=== PATIENT | female | born 1950 | race Caucasian/White ===

== ENCOUNTER 2017-03-06 16:01 | Emergency (ER) | payer OTHER ==
[~2017-03-06] VITALS: Ht 162.6 cm; Wt 102.1 kg
[2017-03-06 16:08] VITALS: BP_SYST 137; BP_DIAS 17; BP_DIAS 71
--- NOTE | 2017-03-06 18:20 | NUR ---
PATIENT PRESENTS TO ED WITH LOWER BACK PAIN AND LEFT HIP PAIN X4 DAYS. NO TRAUMA .DENIES N/V/D; SKIN IS PINK/WARM/DRY; AAOX4 WITH EVEN; LUNGS CLEAR BL; HR EVEN AND REGULAR; PT DENIES ANY FEVER, CP, SOB, OR COUGH AT THIS TIME; PATIENT STATES PAIN OF 10/10 AT THIS TIME;PATIENT POSITIONED FOR COMFORT; HOB ELEVATED; BEDRAILS UP X2; BED DOWN. COMPILATION CLERK AT BEDSIDE.
[2017-03-06] MEDS ORDERED: CYCLOBENZAPRINE 10 MG TAB PO ONE (18:30)
[2017-03-06] MEDS ORDERED: KETOROLAC 30 MG/ML VIAL IM ONE (18:30)
--- NOTE | 2017-03-06 18:49 | NUR ---
PT WENT TO XRAY.ACCOMPANIED BY TECH.
--- NOTE | 2017-03-06 19:02 | NUR ---
BACK FROM XRAY;NO ACUTE DISTRESS NOTED;WILL CONTINUE TO MONITOR PT.
--- NOTE | 2017-03-06 19:09 | NUR ---
Pt report given to MARTINA GUTHRIE. Transfer of care at this time.
--- NOTE | 2017-03-06 19:30 | NUR ---
Patient being evaluated by physician at bedside. Addendum: 03/06/17 at 1937 by [email or web address] EVALUATED BY DR. GARCIA
[2017-03-06 20:25] VITALS: BP 147/83
--- NOTE | 2017-03-06 20:25 | NUR ---
Patient discharged with v/s stable. Written and verbal after care instructions given and explained. Patient alert, oriented and verbalized understanding of instructions. Ambulatory with steady gait. All questions addressed prior to discharge. ID band removed. Patient advised to follow up with PMD. Rx of MOTRIN 600MG PO, FLEXERIL 10MG PO, MACROBID CAPSULE PO given. Patient educated on indication of medication including possible reaction and side effects. Opportunity to ask questions provided and answered.
== END 2017-03-06 20:25 | disposition home or self-care (01) ==
LOC: MED 16:01
DX: N39.0 Urinary tract infection, site not specified (principal); E11.9 Type 2 diabetes mellitus without complications; I10 Essential (primary) hypertension; E78.5 Hyperlipidemia, unspecified; M19.90 Unspecified osteoarthritis, unspecified site
CPT/HCPCS: 72110; 72170; 81002; 96372; 99284; J1885